=== PATIENT | female | born 1945 | race Caucasian/White ===

== ENCOUNTER 2020-02-27 15:17 | Emergency (ER) | payer MEDICARE ==
[2020-02-27] MEDS ORDERED: LIDOCAINE 1%/EPINEPHRINE INJ 20 ML VIAL INJ ONE (16:13)
--- NOTE | 2020-02-27 16:59 | RADIOLOGY REPORT (SQ) ---
EXAM DESCRIPTION: TIBIA FIBULA RIGHT IMAGES COMPLETED DATE/TIME: 02/27/2020 4:43 pm REASON FOR STUDY: right lower leg injury COMPARISON: None. NUMBER OF VIEWS: Two views. TECHNIQUE: AP and lateral views of the right tibia and fibula were obtained. LIMITATIONS: None. FINDINGS: MINERALIZATION: Normal. BONES: No acute fracture or dislocation. No periosteal reaction. SOFT TISSUES: Soft tissue defects along the anterior aspect of the lower extremity. There is no radi opaque foreign body. OTHER: No other findings. IMPRESSION: Soft tissue defects along the anterior aspect of the lower extremity. There is no assoc iated acute osseous abnormality. TECHNICAL DOCUMENTATION: JOB ID: [id number] 2010 [employer]- All Rights Reserved Reading location - IP/workstation name: [email or web address]
[2020-02-27] MEDS ORDERED: ONDANSETRON 4 MG TAB.RAPDIS PO ONE ×2 (17:37→21:22)
[2020-02-27] MEDS ORDERED: OXYCODONE-ACETAMINOPHEN 5-325 MG TABLET PO ONE (17:38)
--- NOTE | 2020-02-27 20:24 | ER Document Report ---
ED General - Related Data Home Medications: baby asa, multivit, vit d, fishoil, tumeric, cinammon, albuterol PRN, symbicort - General Chief Complaint: Laceration Stated Complaint: LACERATION TO RIGHT LOWER LEG Time Seen by Provider: 02/27/20 15:56 Primary Care Provider: CLUADIA BRANNON MD [Primary Care Provider] - Follow up as needed - HPI Notes: Patient is a 74 y/o female who presents with a laceration of her right lower leg that occurred just prior to arrival. Patient states she was trying to take her dog out on a walk when she slipped on some wet stairs. She reports pain to the area of the laceration but denies any ankle, knee, hip, and back pain. She denies hitting her head or any loss of consciousness. She denies any preceding symptoms. She is not on any blood thinners. Patient states her tetanus vaccine is up-to-date as she has been the last 3 years. (EDELMIRA GARCIA) - Related Data Allergies/Adverse Reactions: shellfish derived Allergy (Severe, Verified 02/27/20 15:57) Swelling of Throat Past Medical History - General Information source: Patient - Social History Smoking Status: Former Smoker Chew tobacco use (# tins/day): No Frequency of alcohol use: None Drug Abuse: None Family History: Reviewed & Not Pertinent Patient has homicidal ideation: No Pulmonary Medical History: Reports: Hx Asthma Past Surgical History: Reports: Hx Breast Surgery - rt tumor, lt cluster cyst, Hx Hysterectomy, Hx Orthopedic Surgery - rt carpal, Hx Tubal Ligation Review of Systems - Review of Systems Constitutional: No symptoms reported EENT: No symptoms reported Cardiovascular: No symptoms reported Respiratory: No symptoms reported Gastrointestinal: No symptoms reported Genitourinary: No symptoms reported Female Genitourinary: No symptoms reported Musculoskeletal: See HPI Skin: No symptoms reported Hematologic/Lymphatic: No symptoms reported Neurological/Psychological: No symptoms reported Physical Exam - Vital signs Vitals: Temp Pulse Resp BP Pulse Ox 98.2 F 118 H 20 161/94 H 100 02/27/20 15:30 02/27/20 15:30 02/27/20 15:30 02/27/20 15:30 02/27/20 15:30 - Notes Notes: PHYSICAL EXAMINATION: VITALS: Vitals reviewed and within normal limits. GENERAL: Well-appearing, well-nourished and in no acute distress. HEAD: Atraumatic, normocephalic. EYES: Pupils equal, round, and reactive to light, extraocular movements intact, sclera anicteric, conjunctiva are normal. NECK: Normal range of motion, supple without lymphadenopathy. LUNGS: Breath sounds clear to auscultation bilaterally and equal. No wheezes, rales, or rhonchi. HEART: Regular, rate, and rhythm without murmurs. EXTREMITIES: Large flap laceration to the right lateral manzo with active bleeding. No bony tenderness to the right lower leg. Normal ROM and strength to the right ankle, knee and hip. Sensation grossly intact. No pitting or edema. No cyanosis. NEUROLOGICAL: No focal neurological deficits. Moves all extremities spontaneously and on command. PSYCH: Normal mood, normal affect. SKIN: Warm, Dry, normal turgor, no rashes or lesions noted. (EDELMIRA GARCIA) Course - Laboratory Results Critical Laboratory Results Reviewed: No Critical Results - Radiology Results Critical Radiology Results Reviewed: No Critical Results - Re-evaluation Re-evalutation: 02/27/20 21:22 Patient was ready for discharge and she felt a little dizzy. She also felt nauseous. We will give her a dose of Zofran and will reassess. (ADRIANE GUAN) Patient is a 74-year-old female who presents with a laceration to her right lower leg. Vital signs are within normal limits. On exam, large flap laceration to the right lateral manzo with active bleeding. No bony tenderness to the right lower leg. Tib/Fib XR is negative with no acute fractures. Laceration repair performed without complications and patient tolerated well. Wound dressed with nonadhesive dressing. Patient will be sent home with a prescription for bacitracin and cephalexin 500m QID. Patient advised to see her primary care provider or follow-up in the emergency department for suture removal in 10 to 14 days. Return precautions and follow-up instructions given. Patient understands and is in agreement with the plan. Patient will be discharged home. (EDELMIRA GARCIA) - Vital Signs Vital signs: Temp Pulse Resp BP Pulse Ox 97.6 F 92 16 102/79 95 02/27/20 22:15 02/27/20 22:15 02/27/20 22:15 02/27/20 22:15 02/27/20 22:15 - Radiology Results Radiology Results Interpreted: Tibia/Fibula X-Ray 02/27/20 16:23 IMPRESSION: Soft tissue defects along the anterior aspect of the lower extremity. There is no associated acute osseous abnormality. (EDELMIRA GARCIA) Procedures - Laceration/Wound Repair Right Lower Leg Wound length (cm): 12.5 Wound's Depth, Shape: Flap Laceration pre-procedure: Sterile PPE donned, Sterile drapes applied, Shur-Clens applied Anesthetic type: 1% Lidocaine w/epi Wound Repaired With: Sutures, [place] Suture Size/Type: Vicryl, 4:0 Number of Sutures: 9 - 9 sutures and 25 osmar Post-procedure wound care: Sterile dressing applied Complications: No - Laceration/Wound Repair Right Lower Leg Notes: The wound is 14 cm in length to the right lateral manzo. The wound was copiously irrigated with normal saline and surgical cleanser. The wound was explored for foreign bodies and none were found. The wound was prepped and draped in the normal sterile fashion. The wound was anesthetized using 1% lidocaine with epi. The edges were reapproximated using 4-0 Vicryl x9 and osmar x25. Bleeding was well controlled and the patient tolerated the procedure well. (EDELMIRA GARCIA) Discharge - Discharge Clinical Impression: Laceration of right lower leg Qualifiers: Encounter type: initial encounter Qualified Code(s): S81.811A - Laceration without foreign body, right lower leg, initial encounter Condition: Stable Disposition: HOME, SELF-CARE Instructions: Antibiotic Ointment Protection (OM), Laceration Care ([facility]) Additional Instructions: Follow-up with your primary care provider return to emergency department in 10 to 14 days for staple removal. Prescriptions: Bacitracin [Bacitacin Oph Oint 3.5 gm] 1 applic OP Q4 #1 tube Cephalexin Monohydrate [Keflex 500 mg Capsule] 500 mg PO QID 7 Days #28 capsule Referrals: CLAUDIA BRANNON MD [Primary Care Provider] - Follow up as needed
[2020-02-27] MEDS ORDERED: ONDANSETRON ODT 4 MG TAB (6 TAB/ER DISP) PO PRN (22:09)
[2020-02-27 22:19] VITALS: BP 102/79
== END 2020-02-27 22:17 | disposition home or self-care (01) ==
LOC: ER 15:17
DX: S81.811A Laceration without foreign body, right lower leg, initial encounter (principal); W10.8XXA Fall (on) (from) other stairs and steps, initial encounter; Y93.K1 Activity, walking an animal; Y92.009 Unspecified place in unspecified non-institutional (private) residence as the place of occurrence of the external cause; J45.909 Unspecified asthma, uncomplicated; R42 Dizziness and giddiness; R11.0 Nausea; Z91.013 Allergy to seafood; Z87.891 Personal history of nicotine dependence
CPT/HCPCS: 99283; 73590; 12004; A9270 ×3; J3490; S0119